=== PATIENT | female | born 1950 | race Caucasian/White ===

== ENCOUNTER 2017-04-30 09:49 | Day surgery (SDC) | payer MEDICARE ==
[~2017-04-30] VITALS: Ht 162.6 cm; Wt 105.7 kg
[~2017-04-30 09:49] MED LIST: ALPR.25 PO; ASPI325EC PO; ASPI81CH PO; CALCA500CH PO; CIME300 PO; Flecainide Acet50 MG PO; HYDR1TAB94 PO; LETR2.5 PO; METO50 PO; NAPR220 PO; OMEP20ER PO; Prilosec20 MG PO; SERT100 PO
[2017-04-30] MEDS ORDERED: LEVSOD88 (10:15)
== END 2017-04-30 11:51 | disposition home or self-care (01) ==
LOC: ORSCSDS 09:49
PROVIDERS: Internal Medicine Gastroenterology
PROC: 0DB78ZX Excision of Stomach, Pylorus, Via Natural or Artificial Opening Endoscopic, Diagnostic (ICD-10-PCS; principal; 2017-04-30 11:30)
PROC: 0D758ZZ Dilation of Esophagus, Via Natural or Artificial Opening Endoscopic (ICD-10-PCS; principal; 2017-04-30 11:30)
DX: K21.9 Gastro-esophageal reflux disease without esophagitis (principal); R13.10 Dysphagia, unspecified; R10.13 Epigastric pain; K31.7 Polyp of stomach and duodenum; K22.2 Esophageal obstruction; K44.9 Diaphragmatic hernia without obstruction or gangrene; K25.9 Gastric ulcer, unspecified as acute or chronic, without hemorrhage or perforation; I10 Essential (primary) hypertension; E03.9 Hypothyroidism, unspecified; Z79.899 Other long term (current) drug therapy; Z79.82 Long term (current) use of aspirin
CPT/HCPCS: 88305; 88342